=== PATIENT | male | born 1960 | race African-American/Black ===

== ENCOUNTER 2021-10-24 12:07 | Outpatient (CLI) | payer MEDICARE, MEDICAID ==
[2021-10-24 13:40] LABS: #Eosinphils 0.1 10x3/uL (0.0-0.5); #Monocytes 0.6 10x3/uL (0.0-1.1); #Neutrophils 2.1 10x3/uL (1.5-8.4); %Basophils 0.7 % (0.0-2.0); %Eosinophils 2.9 % (0.0-6.0); %Lymphocytes 35.8 % (18.0-47.0); %Monocytes 13.6 % (0.0-10.0); %Neutrophils 46.6 % (40.0-75.0); Hemoglobin 12.2 g/dL (13.5-17.5); Mean Corpuscular HGB CONC 32.2 g/dL (32.0-36.0); Mean Corpuscular Hemoglobin 32.4 pg (27.0-33.0); Mean Corpuscular Volume 100.5 fl (81.2-95.1); Mean Platelet Volume 11.2 fl (7.4-10.4); Platelet Count 114 10x3/uL (150-450); RBC Distribution Width 12.5 % (11.5-14.5); Red Blood Cell (RBC) Count 3.77 10x6/uL (4.32-5.72); White Blood Cell (WBC) Count 4.5 10x3/uL (3.5-10.5)
[2021-10-24 13:44] LABS: Prothrombin Time 11.3 sec (9.5-12.1)
[2021-10-24 13:53] LABS: Anion Gap 16 mmol/L (10-20); BUN (Urea Nitrogen) 12 mg/dL (8.4-25.7); Calc. Creatinine Clearance 0 mL/min (70-130); Calcium 8.8 mg/dL (7.8-10.44); Carbon Dioxide 21 mmol/L (23-31); Chloride 110 mmol/L (98-107); Glucose 121 mg/dL (80-115); Potassium 4.1 mmol/L (3.5-5.1); Sodium 143 mmol/L (136-145)
[2021-10-24 22:56] LABS: SARS-CoV-2 PCR by NAA Not Detected (NotDetected)
== END 2021-10-24 12:08 | disposition home or self-care (01) ==
LOC: LABBT 12:07
PROVIDERS: ATTEND Orthopaedic Surgery
DX: Z01.818 Encounter for other preprocedural examination (principal); M17.12 Unilateral primary osteoarthritis, left knee; Z20.822 Contact with and (suspected) exposure to COVID-19
CPT/HCPCS: 80048; 85025; 85610; 87081; 93005; U0003; U0005; 93010

== ENCOUNTER 2021-10-29 05:32 | Inpatient (IN) | payer MEDICARE, MEDICAID ==
[2021-10-24 14:46] VITALS: BMI 34.0
[2021-10-29] MEDS ORDERED: Sodium Chloride 0.9% 100 ML ONE (06:04)
[2021-10-29] MEDS ORDERED: Tranexamic Acid 1,000 MG/10 ML VIAL ONE (06:04)
[2021-10-29] MEDS ORDERED: fentaNYL Citrate/PF 100 MCG/2 ML SYRINGE ONE (06:05)
[2021-10-29] MEDS ORDERED: HYDROmorphone 0.5 MG/0.5 ML SYRINGE ONE ×2 (06:06→10:31)
[2021-10-29] MEDS ORDERED: Vancomycin 1.5 GRAM/300 ML BAG 1.5 GM in Premix Bag 1 BAG IVPB SCH (06:15)
[2021-10-29] MEDS ORDERED: Fentanyl 100 MCG/2 ML VIAL ONE ×3 (06:44→10:21)
[2021-10-29] MEDS ORDERED: Midazolam HCl 2 mg/2 ml Vial ONE (06:44)
[2021-10-29] MEDS ORDERED: Ropivacaine 0.5% HCl/PF (150 MG/30 ML VIAL) ONE (06:44)
[2021-10-29] MEDS ORDERED: Lidocaine 1% (PF) 30 ML VIAL ONE (06:45)
[2021-10-29] MEDS ORDERED: Bupivacaine PF 0.5% 30 ML VIAL ONE (06:47)
[2021-10-29] MEDS ORDERED: EPINEPHrine 1 MG/ML AMP ONE (06:47)
[2021-10-29] MEDS ORDERED: ceFAZolin (BATCH) 2 GM/100 ML BAG ONE (07:03)
[2021-10-29] MEDS ORDERED: PROPOFOL 200 MG/20 ML VIAL ONE (07:18)
[2021-10-29] MEDS ORDERED: Dexamethasone 20 MG/5 ML VIAL ONE (07:18)
[2021-10-29] MEDS ORDERED: Ondansetron PF 4 MG/2 ML Vial ONE (07:18)
[2021-10-29] MEDS ORDERED: Promethazine HCl 25 MG/ML VIAL IVPB PRN (07:48)
[2021-10-29] MEDS ORDERED: Ondansetron HCl/PF 4 MG/2 ML Vial IVP PRN (07:48)
[2021-10-29] MEDS ORDERED: Promethazine HCl 25 MG/ML VIAL IM PRN ×3 (07:48→11:55)
[2021-10-29] MEDS ORDERED: Fentanyl 100 MCG/2 ML VIAL SLOW IVP PRN (08:29)
[2021-10-29] MEDS ORDERED: Ondansetron PF 4 MG/2 ML Vial IVP PRN ×2 (08:30→11:55)
[2021-10-29] MEDS ORDERED: Zolpidem Tartrate 5 MG TAB PO PRN ×2 (08:30→11:55)
[2021-10-29] MEDS ORDERED: traMADol HCl 50 MG TAB PO PRN (08:30)
[2021-10-29] MEDS ORDERED: Ropivacaine 0.2% 550 ML 550 ML NERVE BLCK SCH (08:30)
[2021-10-29] MEDS ORDERED: Acetaminophen 325 MG TAB PO PRN (11:55)
[2021-10-29] MEDS ORDERED: diphenhydrAMINE 25 MG CAP PO PRN (11:55)
[2021-10-29] MEDS: Ketorolac Tromethamine 30 MG/ML VIAL IVP SCH ×3 (12:17→23:48)
[2021-10-29] MEDS: HYDROcodone/Acetaminophen 10/325 mg Tablet PO PRN ×3 (12:18→20:44)
[2021-10-29] MEDS ORDERED: Dextrose 5% in Water 1,000 ML IV PRN (12:35)
[2021-10-29] MEDS ORDERED: Dextrose 50% Abboject 50 ML SYRINGE SLOW IVP PRN (12:35)
[2021-10-29] MEDS ORDERED: Insulin Regular 300 UNITS/3 ML VIAL SC PRN ×2 (12:35)
[2021-10-29] MEDS ORDERED: Lisinopril 20 MG TAB PO SCH ×2 (12:45→14:42)
[2021-10-29] MEDS: hydrALAZINE 20 MG/ML VIAL SLOW IVP PRN (12:48)
[2021-10-29] MEDS: Sodium Chloride 0.9% 1,000 ML IV SCH ×2 (12:49→22:48)
[2021-10-29] MEDS: ceFAZolin (BATCH) 2 GM in Premix Bag 1 BAG IVPB SCH ×2 (15:32→23:48)
[2021-10-29] MEDS ORDERED: Vancomycin HCl 1.5 GM in Sodium Chloride 0.9% 250 ML 300 ML IVPB SCH (19:00)
[2021-10-29] MEDS: Aspirin 81 mg Enteric Coated Tablet PO SCH (20:44)
[2021-10-29] MEDS: Ferrous Gluconate 324 MG TAB PO SCH (20:45)
[2021-10-29] MEDS: Senokot S 8.6-50 MG TAB PO SCH (20:45)
[2021-10-29] MEDS ORDERED: diphenhydrAMINE 25 MG CAP PO SCH (22:00)
[2021-10-29] MEDS ORDERED: Loratadine 10 MG TAB PO SCH (22:00)
[2021-10-29] MEDS: traMADol HCl 50 MG TAB PO PRN (23:47)
[2021-10-30] MEDS: HYDROcodone/Acetaminophen 10/325 mg Tablet PO PRN ×3 (03:03→13:28)
[2021-10-30 05:30] LABS: Hemoglobin 11.4 g/dL (14.0-18.0); Mean Corpuscular HGB CONC 31.1 g/dL (32.0-36.0); Mean Corpuscular Hemoglobin 33.6 pg (27.0-31.0); Mean Platelet Volume 7.7 fL (7.4-10.4); Platelet Count 95 thou/uL (130-400); RBC Distribution Width 11.6 % (11.5-14.5); White Blood Cell (WBC) Count 9.9 thou/uL (4.8-10.8)
[2021-10-30] MEDS: Sodium Chloride 0.9% 1,000 ML IV SCH ×2 (05:47→16:47)
[2021-10-30] MEDS: Ketorolac Tromethamine 30 MG/ML VIAL IVP SCH ×4 (06:12→23:25)
[2021-10-30] MEDS: Ferrous Gluconate 324 MG TAB PO SCH ×2 (08:23→19:59)
[2021-10-30] MEDS: Multivitamin W/ Minerals 1 TAB PO SCH (08:23)
[2021-10-30] MEDS: Thiamine 100 MG TAB PO SCH (08:23)
[2021-10-30] MEDS: Aspirin 81 mg Enteric Coated Tablet PO SCH ×2 (08:23→19:59)
[2021-10-30] MEDS: Senokot S 8.6-50 MG TAB PO SCH ×2 (08:23→19:58)
[2021-10-30] MEDS: Folic Acid 1 MG TAB PO SCH (08:23)
[2021-10-30] MEDS ORDERED: Lisinopril 20 MG TAB PO SCH (09:00)
[2021-10-30] MEDS ORDERED: Folic Acid/Vit B Comp W-C PO SCH (09:00)
[2021-10-30] MEDS ORDERED: Lisinopril 10 MG TAB PO SCH ×2 (09:00→19:00)
[2021-10-30] MEDS: hydrALAZINE 20 MG/ML VIAL SLOW IVP PRN ×2 (13:20→19:57)
[2021-10-30] MEDS ORDERED: Labetalol HCl 100 MG/20 ML VIAL SLOW IVP PRN (16:25)
[2021-10-30] MEDS: traMADol HCl 50 MG TAB PO PRN (19:58)
[2021-10-30] MEDS: Loratadine 10 MG TAB PO SCH (19:58)
[2021-10-31] MEDS: Sodium Chloride 0.9% 1,000 ML IV SCH ×3 (00:13→23:28)
[2021-10-31] MEDS: Ketorolac Tromethamine 30 MG/ML VIAL IVP SCH (05:10)
[2021-10-31 05:24] LABS: Hemoglobin 11.7 g/dL (14.0-18.0); Mean Corpuscular HGB CONC 31.3 g/dL (32.0-36.0); Mean Corpuscular Hemoglobin 33.9 pg (27.0-31.0); Mean Platelet Volume 8.3 fL (7.4-10.4); Platelet Count 98 thou/uL (130-400); RBC Distribution Width 11.7 % (11.5-14.5); Red Blood Cell (RBC) Count 3.45 mill/uL (4.70-6.10); White Blood Cell (WBC) Count 8.2 thou/uL (4.8-10.8)
[2021-10-31] MEDS: HYDROcodone/Acetaminophen 10/325 mg Tablet PO PRN ×3 (08:54→20:53)
[2021-10-31] MEDS: Multivitamin W/ Minerals 1 TAB PO SCH (08:56)
[2021-10-31] MEDS: Ferrous Gluconate 324 MG TAB PO SCH ×2 (08:56→20:53)
[2021-10-31] MEDS: Aspirin 81 mg Enteric Coated Tablet PO SCH ×2 (08:57→20:53)
[2021-10-31] MEDS: Lisinopril 20 MG TAB PO SCH (08:57)
[2021-10-31] MEDS: Folic Acid 1 MG TAB PO SCH (08:57)
[2021-10-31] MEDS: Thiamine 100 MG TAB PO SCH (08:58)
[2021-10-31] MEDS: Senokot S 8.6-50 MG TAB PO SCH ×2 (09:10→20:53)
[2021-10-31] MEDS: traMADol HCl 50 MG TAB PO PRN (14:53)
[2021-10-31] MEDS: Loratadine 10 MG TAB PO SCH (20:53)
[2021-11-01] MEDS: Aspirin 81 mg Enteric Coated Tablet PO SCH ×2 (08:44→21:30)
[2021-11-01] MEDS: Multivitamin W/ Minerals 1 TAB PO SCH (08:44)
[2021-11-01] MEDS: Ferrous Gluconate 324 MG TAB PO SCH ×2 (08:45→21:30)
[2021-11-01] MEDS: Senokot S 8.6-50 MG TAB PO SCH ×2 (08:45→21:30)
[2021-11-01] MEDS: Lisinopril 20 MG TAB PO SCH (08:45)
[2021-11-01] MEDS: Amlodipine 10 MG TAB PO SCH (08:45)
[2021-11-01] MEDS: Folic Acid 1 MG TAB PO SCH (08:45)
[2021-11-01] MEDS: Thiamine 100 MG TAB PO SCH (08:45)
[2021-11-01] MEDS: HYDROcodone/Acetaminophen 10/325 mg Tablet PO PRN ×4 (08:50→22:10)
[2021-11-01] MEDS: Sodium Chloride 0.9% 1,000 ML IV SCH ×2 (16:24→21:30)
[2021-11-01] MEDS: Loratadine 10 MG TAB PO SCH (21:30)
[2021-11-02] MEDS: Sodium Chloride 0.9% 1,000 ML IV SCH ×2 (04:55→12:24)
[2021-11-02] MEDS: HYDROcodone/Acetaminophen 10/325 mg Tablet PO PRN ×4 (06:16→20:26)
[2021-11-02 06:34] LABS: Anion Gap 12 mmol/L (10-20); BUN (Urea Nitrogen) 9 mg/dL (8.4-25.7); Calc. Creatinine Clearance 140 mL/min (70-130); Calcium 8.1 mg/dL (7.8-10.44); Carbon Dioxide 27 mmol/L (23-31); Chloride 104 mmol/L (98-107); Glucose 95 mg/dL (80-115); Potassium 3.8 mmol/L (3.5-5.1); Sodium 139 mmol/L (136-145)
[2021-11-02] MEDS: Multivitamin W/ Minerals 1 TAB PO SCH (08:04)
[2021-11-02] MEDS: Aspirin 81 mg Enteric Coated Tablet PO SCH ×2 (08:04→20:26)
[2021-11-02] MEDS: Lisinopril 20 MG TAB PO SCH ×2 (08:05→20:27)
[2021-11-02] MEDS: Ferrous Gluconate 324 MG TAB PO SCH ×2 (08:05→20:26)
[2021-11-02] MEDS: Amlodipine 10 MG TAB PO SCH (08:05)
[2021-11-02] MEDS: Thiamine 100 MG TAB PO SCH (08:05)
[2021-11-02] MEDS: Folic Acid 1 MG TAB PO SCH (08:05)
[2021-11-02] MEDS: Senokot S 8.6-50 MG TAB PO SCH ×2 (08:05→20:26)
[2021-11-02] MEDS: Loratadine 10 MG TAB PO SCH (20:26)
[2021-11-03] MEDS: Sodium Chloride 0.9% 1,000 ML IV SCH ×2 (01:51→14:58)
[2021-11-03] MEDS: Aspirin 81 mg Enteric Coated Tablet PO SCH (07:35)
[2021-11-03] MEDS: Ferrous Gluconate 324 MG TAB PO SCH (07:35)
[2021-11-03] MEDS: Multivitamin W/ Minerals 1 TAB PO SCH (07:35)
[2021-11-03] MEDS: Thiamine 100 MG TAB PO SCH (07:36)
[2021-11-03] MEDS: Senokot S 8.6-50 MG TAB PO SCH (07:36)
[2021-11-03] MEDS: Lisinopril 20 MG TAB PO SCH (07:37)
[2021-11-03] MEDS: HYDROcodone/Acetaminophen 10/325 mg Tablet PO PRN ×2 (07:38→16:53)
[2021-11-03] MEDS: Folic Acid 1 MG TAB PO SCH (07:39)
[2021-11-03] MEDS: Amlodipine 10 MG TAB PO SCH (07:39)
[2021-11-03] MEDS: hydrALAZINE 20 MG/ML VIAL SLOW IVP PRN (07:46)
[2021-11-03] MEDS ORDERED: Hydrochlorothiazide 25 MG TAB PO SCH (09:00)
[2021-11-03 16:04] VITALS: BP 128/65; TEMP 98.4
== END 2021-11-03 20:05 | disposition short-term general hospital (02) | DRG 470 ==
LOC: SDC 05:32 → SURG A 11:47 → SDC 12:27
PROVIDERS: ADMIT Orthopaedic Surgery; ATTEND Orthopaedic Surgery
PROC: 0SRD0J9 Replacement of Left Knee Joint with Synthetic Substitute, Cemented, Open Approach (ICD-10-PCS; principal; 2021-10-30)
DX: M17.12 Unilateral primary osteoarthritis, left knee (principal); Z20.822 Contact with and (suspected) exposure to COVID-19; B18.2 Chronic viral hepatitis C; M25.762 Osteophyte, left knee; M21.162 Varus deformity, not elsewhere classified, left knee; E66.9 Obesity, unspecified; D64.9 Anemia, unspecified; D69.6 Thrombocytopenia, unspecified; K21.9 Gastro-esophageal reflux disease without esophagitis; F12.10 Cannabis abuse, uncomplicated; F17.210 Nicotine dependence, cigarettes, uncomplicated; I12.9 Hypertensive chronic kidney disease with stage 1 through stage 4 chronic kidney disease, or unspecified chronic kidney disease; E11.22 Type 2 diabetes mellitus with diabetic chronic kidney disease; N18.2 Chronic kidney disease, stage 2 (mild); M21.062 Valgus deformity, not elsewhere classified, left knee; Z96.651 Presence of right artificial knee joint; Z90.49 Acquired absence of other specified parts of digestive tract; Z68.34 Body mass index [BMI] 34.0-34.9, adult
CPT/HCPCS: 36415; 36416; 80048; 85027; A4306; C1713; C1776; J0171; J0360; J0690; J1100; J1170; J1885; J2001; J2250; J2405; J2704; J2795; J3010; J3370; J3490; J7050; S0020

== ENCOUNTER 2023-02-13 14:20 | Inpatient (IN) | payer MEDICAID, MEDICARE, OTHER ==
[2023-02-13 14:56] LABS: #Eosinphils 0.1 thou/uL (0.0-0.7); #Neutrophils 15.6 thou/uL (1.40-6.50); %Basophils 0.2 % (0.0-1.0); %Eosinophils 0.3 % (0.0-10.0); %Lymphocytes 4.9 % (21.0-51.0); %Monocytes 5.7 % (0.0-10.0); %Neutrophils 88.3 % (42.0-75.0); Hematocrit 33.7 % (42.0-52.0); Hemoglobin 11.1 g/dL (14.0-18.0); Mean Corpuscular HGB CONC 32.9 g/dL (32.0-36.0); Mean Corpuscular Hemoglobin 33.5 pg (27.0-31.0); Mean Corpuscular Volume 101.8 fl (78.0-98.0); Mean Platelet Volume 9.3 fL (7.4-10.4); Platelet Count 183 10x3/uL (130-400); RBC Distribution Width 13.4 % (11.5-14.5); Red Blood Cell (RBC) Count 3.31 mill/uL (4.70-6.10); White Blood Cell (WBC) Count 17.7 10x3/uL (4.8-10.8)
[2023-02-13 15:14] LABS: ALT (SGPT) 14 U/L (8-55); AST (SGOT) 37 U/L (5-34); Acetaminophen Less than 10 mcg/mL (10.0-30.0); Albumin 2.5 g/dL (3.4-4.8); Alcohol Less than 10.0 mg/dL (Less than 10); Alkaline Phosphatase 85 U/L (40-110); Anion Gap 14 mmol/L (10-20); BUN (Urea Nitrogen) 10 mg/dL (8.4-25.7); Bilirubin, Total 1.9 mg/dL (0.2-1.2); CK (CPK) 92 U/L (30-200); Calc. Creatinine Clearance 0 mL/min (70-130); Calcium 8.2 mg/dL (7.8-10.44); Carbon Dioxide 22 mmol/L (23-31); Chloride 105 mmol/L (98-107); Estimated GFR 66; Globulin 4.3 g/dL (2.4-3.5); Glucose 133 mg/dL (80-115); Potassium 3.7 mmol/L (3.5-5.1); Protein, Total 6.8 g/dL (5.8-8.1); Salicylate Less than 8.0 mg/dL (15.0-30.0); Sodium 137 mmol/L (136-145)
[2023-02-13 15:17] LABS: Troponin I Less than 0.010 ng/mL (< 0.028)
[2023-02-13] MEDS ORDERED: cefTRIAXone (ROCEPHIN) 1 GM VIAL ONE ×2 (16:14→16:27)
[2023-02-13] MEDS ORDERED: Vancomycin 1.5 GRAM/300 ML BAG 1.5 GM in Premix Bag 1 BAG IVPB SCH (19:00)
[2023-02-13 19:17] LABS: Lactic Acid 1.9 mmol/L (0.5-2.2)
[2023-02-13 19:18] LABS: Bacteria/HPF 3+ HPF (None Seen); Bilirubin 1+ (Negative); Blood, Urine 3+ (Negative); CAUTI Indications for Culture < 2yrs of age; Clarity Clear (Clear); Glucose, Urine (Dipstick) Normal (Negative); Ketone, Urine Negative (Negative); Leukocyte 250 Leu/uL (Negative); Mucous/LPF Rare LPF (<2+); Nitrite Negative (Negative); Protein, Urine (Dipstick) 30 mg/dL (Neg-Trace); RBC/HPF Greater than 50 HPF (0-3); Specific Gravity, Urine 1.025 (1.002-1.036); Squamous Epithelial None Seen HPF (0-3); Urobilinogen 12 mg/dL (Less than 2); WBC/HPF 21-50 HPF (0-3); pH, Urine 5.5 (5.0-9.0)
[2023-02-13 19:25] LABS: Urine Culture Reflex Yes Yes
[2023-02-13] MEDS ORDERED: Ondansetron ODT 4 MG TAB PO PRN (21:01)
[2023-02-13] MEDS ORDERED: Senokot S 8.6-50 MG TAB PO PRN (21:01)
[2023-02-13] MEDS ORDERED: Bisacodyl 5 MG TAB PO PRN (21:01)
[2023-02-13] MEDS ORDERED: Ondansetron PF 4 MG/2 ML Vial IVP PRN (21:01)
[2023-02-13] MEDS: Ketorolac Tromethamine 30 MG/ML VIAL IVP SCH (21:17)
[2023-02-13] MEDS: Acetaminophen 500 MG TAB PO PRN (21:18)
[2023-02-13] MEDS ORDERED: Albumin 25% 25 GM/100 ML BOT IVPB SCH (22:45)
[2023-02-14] MEDS: Ketorolac Tromethamine 30 MG/ML VIAL IVP PRN ×2 (06:02→12:08)
[2023-02-14 08:35] LABS: Hematocrit 30.5 % (42.0-52.0); Hemoglobin 9.6 g/dL (14.0-18.0); Mean Corpuscular HGB CONC 31.5 g/dL (32.0-36.0); Mean Corpuscular Hemoglobin 33.3 pg (27.0-31.0); Mean Platelet Volume 9.2 fL (7.4-10.4); Platelet Count 149 10x3/uL (130-400); RBC Distribution Width 13.7 % (11.5-14.5); Red Blood Cell (RBC) Count 2.88 mill/uL (4.70-6.10); White Blood Cell (WBC) Count 20.1 10x3/uL (4.8-10.8)
[2023-02-14 08:48] LABS: Delete Auto Diff?? YES; Manual Diff?? YES; Mean Corpuscular Volume 105.9 fl (78.0-98.0)
[2023-02-14 08:49] LABS: Anion Gap 16 mmol/L (10-20); BUN (Urea Nitrogen) 14 mg/dL (8.4-25.7); Calc. Creatinine Clearance 85 mL/min (70-130); Calcium 8.3 mg/dL (7.8-10.44); Carbon Dioxide 20 mmol/L (23-31); Chloride 106 mmol/L (98-107); Estimated GFR 64; Glucose 119 mg/dL (80-115); Potassium 3.8 mmol/L (3.5-5.1); Sodium 138 mmol/L (136-145)
[2023-02-14] MEDS ORDERED: Vancomycin 1 GM in Premix Bag 1 BAG IVPB SCH (09:00)
[2023-02-14] MEDS: Lisinopril 20 MG TAB PO SCH (09:37)
[2023-02-14] MEDS: Famotidine 20 MG TAB PO SCH ×2 (09:37→21:39)
[2023-02-14] MEDS: Aspirin Chewable 81 MG TAB PO SCH (09:37)
[2023-02-14] MEDS: VANCOMYCIN 1.25 GM/250 ML BAG 1.25 GM in Premix Bag 1 BAG IVPB SCH ×2 (09:38→21:38)
[2023-02-14 09:45] LABS: Anisocytosis SLIGHT = 6-15 cells HPF (0-5); Band 1 % (5-11); Burr Cells SLIGHT = 2-5 cells HPF (0-1); CellaVision Operator ID LAB.NR; Eosinophils 1 % (0-10); Lymphocytes 6 % (21-51); Macrocytosis SLIGHT = 6-15 cells HPF (0-5); Monocytes 3 % (0-10); Neutrophil 89 % (42-75); Platelet Adequacy Comment Platelets Normal; Polychromasia SLIGHT = 2-3 cells HPF (0-2); Total Cell Count 100
[2023-02-14] MEDS ORDERED: cefTRIAXone\\ROCEPHIN 1 GM in Sodium Chloride 0.9% 100 ML IVPB SCH (16:00)
[2023-02-14] MEDS ORDERED: hydrOXYzine 25 MG TAB PO SCH (20:45)
[2023-02-14] MEDS ORDERED: Lorazepam 1 MG TAB PO SCH (20:45)
[2023-02-14] MEDS: Ketorolac Tromethamine 30 MG/ML VIAL IVP SCH (21:40)
[2023-02-14] MEDS: Heparin 5,000 UNITS/ML VIAL SC SCH (21:40)
[2023-02-14] MEDS: Atorvastatin Calcium 40 MG TAB PO SCH (21:41)
[2023-02-15] MEDS: Acetaminophen 500 MG TAB PO PRN ×2 (03:17→14:39)
[2023-02-15] MEDS: Heparin 5,000 UNITS/ML VIAL SC SCH ×2 (08:49→20:43)
[2023-02-15] MEDS: Famotidine 20 MG TAB PO SCH ×2 (08:49→20:43)
[2023-02-15] MEDS: Lisinopril 20 MG TAB PO SCH (08:49)
[2023-02-15] MEDS: Aspirin Chewable 81 MG TAB PO SCH (08:49)
[2023-02-15 10:14] LABS: #Basophils 0.1 thou/uL (0.0-0.2); #Eosinphils 0.2 thou/uL (0.0-0.7); #Monocytes 1.1 thou/uL (0.11-0.59); #Neutrophils 9.4 thou/uL (1.40-6.50); %Basophils 0.5 % (0.0-1.0); %Eosinophils 1.2 % (0.0-10.0); %Lymphocytes 15.1 % (21.0-51.0); %Monocytes 8.4 % (0.0-10.0); %Neutrophils 73.3 % (42.0-75.0); Hematocrit 32.8 % (42.0-52.0); Hemoglobin 10.3 g/dL (14.0-18.0); Mean Corpuscular HGB CONC 31.4 g/dL (32.0-36.0); Mean Corpuscular Hemoglobin 32.9 pg (27.0-31.0); Mean Corpuscular Volume 104.8 fl (78.0-98.0); Mean Platelet Volume 9.3 fL (7.4-10.4); Platelet Count 153 10x3/uL (130-400); RBC Distribution Width 13.9 % (11.5-14.5); Red Blood Cell (RBC) Count 3.13 mill/uL (4.70-6.10); White Blood Cell (WBC) Count 12.8 10x3/uL (4.8-10.8)
[2023-02-15 10:37] LABS: Vancomycin, Trough 14.1 ug/mL
[2023-02-15 10:39] LABS: Anion Gap 11 mmol/L (10-20); BUN (Urea Nitrogen) 15 mg/dL (8.4-25.7); Calc. Creatinine Clearance 92 mL/min (70-130); Calcium 8.6 mg/dL (7.8-10.44); Carbon Dioxide 20 mmol/L (23-31); Chloride 107 mmol/L (98-107); Estimated GFR 70; Glucose 129 mg/dL (80-115); Potassium 3.7 mmol/L (3.5-5.1); Sodium 134 mmol/L (136-145)
[2023-02-15 11:00] LABS: HIV (1/2) Antibody/Antigen Non-Reactive (NonReactive); HIV 1/2 INDEX 0.17 S/CO (<1.00)
[2023-02-15] MEDS: VANCOMYCIN 1.25 GM/250 ML BAG 1.25 GM in Premix Bag 1 BAG IVPB SCH (11:08)
[2023-02-15 11:29] LABS: Hep C IgG Ab Reflex HepC Qnt S/CO (NonReactive); Hep C Index 12.05 S/CO (0-0.79)
[2023-02-15] MEDS: CEFAZOLIN 2 GM in Sodium Chloride 0.9% 100 ML IVPB SCH ×2 (14:26→22:27)
[2023-02-15 18:14] LABS: ALT (SGPT) 14 U/L (8-55); AST (SGOT) 43 U/L (5-34); Albumin 2.5 g/dL (3.4-4.8); Alkaline Phosphatase 93 U/L (40-110); Bilirubin, Total 1.2 mg/dL (0.2-1.2)
[2023-02-15] MEDS: Atorvastatin Calcium 40 MG TAB PO SCH (20:43)
[2023-02-15] MEDS: Ketorolac Tromethamine 30 MG/ML VIAL IVP PRN (22:28)
[2023-02-16] MEDS: CEFAZOLIN 2 GM in Sodium Chloride 0.9% 100 ML IVPB SCH ×3 (05:13→22:23)
[2023-02-16] MEDS ORDERED: Bupivacaine PF 0.5% 30 ML VIAL ONE (06:39)
[2023-02-16] MEDS ORDERED: Vancomycin 1 GM VIAL ONE (06:39)
[2023-02-16] MEDS ORDERED: Vancomycin 500 MG VIAL (PEDI) ONE (06:39)
[2023-02-16] MEDS ORDERED: Bacitracin Zinc Ointment 30 gm TUBE ONE (06:39)
[2023-02-16] MEDS: Heparin 5,000 UNITS/ML VIAL SC SCH ×2 (09:49→21:39)
[2023-02-16] MEDS: Famotidine 20 MG TAB PO SCH ×2 (09:49→20:30)
[2023-02-16] MEDS: Aspirin Chewable 81 MG TAB PO SCH (09:49)
[2023-02-16] MEDS: Lisinopril 20 MG TAB PO SCH (09:49)
[2023-02-16] MEDS: Lorazepam 2 MG/ML VIAL SLOW IVP PRN ×2 (10:26→20:30)
[2023-02-16 12:01] LABS: #Basophils 0.1 thou/uL (0.0-0.2); #Eosinphils 0.1 thou/uL (0.0-0.7); #Monocytes 1.1 thou/uL (0.11-0.59); #Neutrophils 7.3 thou/uL (1.40-6.50); %Basophils 0.5 % (0.0-1.0); %Eosinophils 0.8 % (0.0-10.0); %Lymphocytes 18.3 % (21.0-51.0); %Monocytes 10.3 % (0.0-10.0); %Neutrophils 69.5 % (42.0-75.0); Hematocrit 32.2 % (42.0-52.0); Hemoglobin 10.2 g/dL (14.0-18.0); Mean Corpuscular HGB CONC 31.7 g/dL (32.0-36.0); Mean Corpuscular Hemoglobin 32.5 pg (27.0-31.0); Mean Corpuscular Volume 102.5 fl (78.0-98.0); Mean Platelet Volume 9.2 fL (7.4-10.4); Platelet Count 177 10x3/uL (130-400); RBC Distribution Width 14.1 % (11.5-14.5); Red Blood Cell (RBC) Count 3.14 mill/uL (4.70-6.10); White Blood Cell (WBC) Count 10.5 10x3/uL (4.8-10.8)
[2023-02-16 12:28] LABS: Anion Gap 13 mmol/L (10-20); BUN (Urea Nitrogen) 14 mg/dL (8.4-25.7); Calc. Creatinine Clearance 100 mL/min (70-130); Calcium 8.7 mg/dL (7.6-10.4); Carbon Dioxide 23 mmol/L (23-31); Chloride 105 mmol/L (98-107); Estimated GFR 78; Glucose 100 mg/dL (80-115); Sodium 137 mmol/L (136-145)
[2023-02-16 13:45] LABS: Amphetamine Not Detected (NotDetected); Barbiturates Screen Not Detected (NotDetected); Benzodiazepine Screen Not Detected (NotDetected); Cocaine Metabolite Screen Not Detected (NotDetected); Methadone Not Detected (NotDetected); Methamphetamine Not Detected (NotDetected); Opiate Screen Not Detected (NotDetected); Oxycodone Screen Not Detected (NotDetected); Phencyclidine (PCP) Not Detected (NotDetected); THC/Cannabinoid Screen Not Detected (NotDetected); Tricyclic Screen Not Detected (NotDetected)
[2023-02-16] MEDS ORDERED: NIFEdipine XL 30 MG TAB PO SCH (17:15)
[2023-02-16] MEDS: Atorvastatin Calcium 40 MG TAB PO SCH (20:30)
[2023-02-16] MEDS ORDERED: cloNIDine 0.1 MG TAB PO SCH (21:00)
[2023-02-17] MEDS: CEFAZOLIN 2 GM in Sodium Chloride 0.9% 100 ML IVPB SCH ×3 (05:31→21:35)
[2023-02-17] MEDS: Aspirin Chewable 81 MG TAB PO SCH (09:15)
[2023-02-17] MEDS: Heparin 5,000 UNITS/ML VIAL SC SCH ×2 (09:15→20:17)
[2023-02-17] MEDS: Famotidine 20 MG TAB PO SCH ×2 (09:18→20:16)
[2023-02-17] MEDS: Lisinopril 20 MG TAB PO SCH (09:18)
[2023-02-17] MEDS: NIFEdipine XL 30 MG TAB PO SCH (09:19)
[2023-02-17 10:05] LABS: #Eosinphils 0.1 thou/uL (0.0-0.7); #Monocytes 1.4 thou/uL (0.11-0.59); #Neutrophils 7.4 thou/uL (1.40-6.50); %Basophils 0.3 % (0.0-1.0); %Eosinophils 0.5 % (0.0-10.0); %Lymphocytes 21.4 % (21.0-51.0); %Monocytes 12.3 % (0.0-10.0); %Neutrophils 65.1 % (42.0-75.0); Hematocrit 30.7 % (42.0-52.0); Hemoglobin 9.6 g/dL (14.0-18.0); Mean Corpuscular HGB CONC 31.3 g/dL (32.0-36.0); Mean Corpuscular Hemoglobin 32.8 pg (27.0-31.0); Mean Corpuscular Volume 104.8 fl (78.0-98.0); Mean Platelet Volume 9.6 fL (7.4-10.4); Platelet Count 225 10x3/uL (130-400); RBC Distribution Width 14.4 % (11.5-14.5); Red Blood Cell (RBC) Count 2.93 mill/uL (4.70-6.10); White Blood Cell (WBC) Count 11.4 10x3/uL (4.8-10.8)
[2023-02-17 10:23] LABS: Anion Gap 14 mmol/L (10-20); BUN (Urea Nitrogen) 13 mg/dL (8.4-25.7); Calc. Creatinine Clearance 96 mL/min (70-130); Calcium 8.8 mg/dL (7.8-10.44); Carbon Dioxide 20 mmol/L (23-31); Chloride 106 mmol/L (98-107); Estimated GFR 73; Glucose 150 mg/dL (80-115); Potassium 4.3 mmol/L (3.5-5.1); Sodium 136 mmol/L (136-145)
[2023-02-17] MEDS ORDERED: fentaNYL 50 mcg/mL 1 mL Vial ONE ×2 (15:28→15:57)
[2023-02-17] MEDS ORDERED: Bupivacaine PF 0.5% 30 ML VIAL ONE (15:30)
[2023-02-17] MEDS ORDERED: Bacitracin Zinc Ointment 30 gm TUBE ONE (15:30)
[2023-02-17] MEDS ORDERED: Vancomycin 1 GM VIAL ONE (15:52)
[2023-02-17] MEDS ORDERED: Ketamine 50 MG/ML (10ML VIAL) ONE (15:57)
[2023-02-17] MEDS ORDERED: Midazolam HCl 2 mg/2 ml Vial ONE (15:57)
[2023-02-17] MEDS ORDERED: Morphine Sulfate 2 MG/ML SYRINGE SLOW IVP PRN (17:53)
[2023-02-17] MEDS ORDERED: Ondansetron HCl/PF 4 MG/2 ML Vial IVP PRN (17:53)
[2023-02-17] MEDS: Atorvastatin Calcium 40 MG TAB PO SCH (20:16)
[2023-02-17] MEDS: cloNIDine 0.1 MG TAB PO SCH (20:17)
[2023-02-17] MEDS: Morphine 2 MG/ML VIAL SLOW IVP PRN (22:37)
[2023-02-18 03:57] LABS: #Eosinphils 0.2 thou/uL (0.0-0.7); #Monocytes 1.3 thou/uL (0.11-0.59); #Neutrophils 5.7 thou/uL (1.40-6.50); %Basophils 0.4 % (0.0-1.0); %Eosinophils 1.7 % (0.0-10.0); %Lymphocytes 22.5 % (21.0-51.0); %Monocytes 13.7 % (0.0-10.0); %Neutrophils 61.2 % (42.0-75.0); Hematocrit 29.2 % (42.0-52.0); Hemoglobin 9.3 g/dL (14.0-18.0); Mean Corpuscular HGB CONC 31.8 g/dL (32.0-36.0); Mean Corpuscular Hemoglobin 32.4 pg (27.0-31.0); Mean Corpuscular Volume 101.7 fl (78.0-98.0); Mean Platelet Volume 9.6 fL (7.4-10.4); Platelet Count 195 10x3/uL (130-400); Red Blood Cell (RBC) Count 2.87 mill/uL (4.70-6.10); White Blood Cell (WBC) Count 9.4 10x3/uL (4.8-10.8)
[2023-02-18 04:39] LABS: Anion Gap 13 mmol/L (10-20); BUN (Urea Nitrogen) 14 mg/dL (8.4-25.7); Calc. Creatinine Clearance 119 mL/min (70-130); Calcium 8.6 mg/dL (7.8-10.44); Carbon Dioxide 25 mmol/L (23-31); Chloride 105 mmol/L (98-107); Estimated GFR 95; Glucose 113 mg/dL (80-115); Potassium 4.1 mmol/L (3.5-5.1); Sodium 139 mmol/L (136-145)
[2023-02-18] MEDS: CEFAZOLIN 2 GM in Sodium Chloride 0.9% 100 ML IVPB SCH ×3 (04:59→21:57)
[2023-02-18] MEDS: NIFEdipine XL 30 MG TAB PO SCH (09:51)
[2023-02-18] MEDS: Aspirin Chewable 81 MG TAB PO SCH (09:52)
[2023-02-18] MEDS: Lisinopril 20 MG TAB PO SCH (09:52)
[2023-02-18] MEDS: Furosemide 20 MG/2 ML VIAL SLOW IVP SCH (09:57)
[2023-02-18] MEDS: Heparin 5,000 UNITS/ML VIAL SC SCH ×2 (09:58→20:07)
[2023-02-18] MEDS: cloNIDine 0.1 MG TAB PO SCH ×2 (10:19→20:06)
[2023-02-18] MEDS: Famotidine 20 MG TAB PO SCH ×2 (10:51→20:07)
[2023-02-18] MEDS ORDERED: Iopamidol-370 76% 500 ML MDV (1 ML CHARGE) ONE (12:54)
[2023-02-18 15:46] LABS: Amphetamine Not Detected (NotDetected); Barbiturates Screen Not Detected (NotDetected); Benzodiazepine Screen Not Detected (NotDetected); Cocaine Metabolite Screen Not Detected (NotDetected); Methadone Not Detected (NotDetected); Methamphetamine Not Detected (NotDetected); Opiate Screen Detected (NotDetected); Oxycodone Screen Not Detected (NotDetected); Phencyclidine (PCP) Not Detected (NotDetected); THC/Cannabinoid Screen Not Detected (NotDetected); Tricyclic Screen Not Detected (NotDetected)
[2023-02-18] MEDS: Morphine 2 MG/ML VIAL SLOW IVP PRN ×2 (18:35→21:59)
[2023-02-18] MEDS: Atorvastatin Calcium 40 MG TAB PO SCH (20:07)
[2023-02-19 05:21] LABS: #Eosinphils 0.2 thou/uL (0.0-0.7); #Monocytes 1.3 thou/uL (0.11-0.59); #Neutrophils 5.9 thou/uL (1.40-6.50); %Basophils 0.2 % (0.0-1.0); %Eosinophils 2.1 % (0.0-10.0); %Lymphocytes 22.6 % (21.0-51.0); %Monocytes 13.3 % (0.0-10.0); Hemoglobin 9.8 g/dL (14.0-18.0); Mean Corpuscular HGB CONC 31.6 g/dL (32.0-36.0); Mean Corpuscular Hemoglobin 32.3 pg (27.0-31.0); Mean Corpuscular Volume 102.3 fl (78.0-98.0); Mean Platelet Volume 9.4 fL (7.4-10.4); Platelet Count 217 10x3/uL (130-400); RBC Distribution Width 14.2 % (11.5-14.5); Red Blood Cell (RBC) Count 3.03 mill/uL (4.70-6.10); White Blood Cell (WBC) Count 9.7 10x3/uL (4.8-10.8)
[2023-02-19] MEDS: CEFAZOLIN 2 GM in Sodium Chloride 0.9% 100 ML IVPB SCH ×3 (05:37→21:19)
[2023-02-19 05:43] LABS: Anion Gap 12 mmol/L (10-20); BUN (Urea Nitrogen) 22 mg/dL (8.4-25.7); Calc. Creatinine Clearance 102 mL/min (70-130); Carbon Dioxide 27 mmol/L (23-31); Chloride 105 mmol/L (98-107); Estimated GFR 77; Glucose 115 mg/dL (80-115); Potassium 4.3 mmol/L (3.5-5.1); Sodium 140 mmol/L (136-145)
[2023-02-19] MEDS: Aspirin Chewable 81 MG TAB PO SCH (08:34)
[2023-02-19] MEDS: NIFEdipine XL 30 MG TAB PO SCH (08:35)
[2023-02-19] MEDS: Famotidine 20 MG TAB PO SCH ×2 (08:35→21:13)
[2023-02-19] MEDS: Heparin 5,000 UNITS/ML VIAL SC SCH ×2 (08:36→21:14)
[2023-02-19] MEDS: Furosemide 20 MG/2 ML VIAL SLOW IVP SCH (08:36)
[2023-02-19] MEDS: Lisinopril 20 MG TAB PO SCH (08:36)
[2023-02-19] MEDS: cloNIDine 0.1 MG TAB PO SCH ×2 (08:50→21:13)
[2023-02-19] MEDS ORDERED: Iopamidol-370 76% 500 ML MDV (1 ML CHARGE) ONE (15:00)
[2023-02-19] MEDS: Morphine 2 MG/ML VIAL SLOW IVP PRN ×2 (15:33→21:14)
[2023-02-19] MEDS: Atorvastatin Calcium 40 MG TAB PO SCH (21:13)
[2023-02-19] MEDS ORDERED: Atropine Sulfate 1 mg/10 ml Syringe ONE (23:32)
[2023-02-19] MEDS ORDERED: NOREPINEPHRINE 8 MG/250 ML-D5W 250 ML ONE (23:54)
[2023-02-19] MEDS ORDERED: Sodium Chloride 0.9% 500 ML IV SCH (23:59)
[2023-02-19] MEDS ORDERED: Atropine Sulfate 1 mg/10 ml Syringe IVP SCH (23:59)
[2023-02-19] MEDS ORDERED: NOREPINEPHRINE 8 MG/250 ML-D5W 250 ML IVPB SCH (23:59)
[2023-02-20 00:18] LABS: #Eosinphils 0.1 thou/uL (0.0-0.7); #Monocytes 0.7 thou/uL (0.11-0.59); #Neutrophils 4.5 thou/uL (1.40-6.50); %Basophils 0.4 % (0.0-1.0); %Eosinophils 1.7 % (0.0-10.0); %Lymphocytes 22.6 % (21.0-51.0); %Neutrophils 64.6 % (42.0-75.0); Hematocrit 25.4 % (42.0-52.0); Hemoglobin 7.7 g/dL (14.0-18.0); Mean Corpuscular HGB CONC 30.3 g/dL (32.0-36.0); Mean Corpuscular Hemoglobin 32.5 pg (27.0-31.0); Mean Platelet Volume 9.8 fL (7.4-10.4); Platelet Count 195 10x3/uL (130-400); RBC Distribution Width 14.5 % (11.5-14.5); Red Blood Cell (RBC) Count 2.37 mill/uL (4.70-6.10)
[2023-02-20 00:19] LABS: Mean Corpuscular Volume 107.2 fl (78.0-98.0)
[2023-02-20] MEDS ORDERED: Lorazepam 2 MG/ML VIAL ONE (00:24)
[2023-02-20] MEDS ORDERED: Propofol BOLUS 1,000 MG/100 ML VIAL IV PRN (00:30)
[2023-02-20] MEDS ORDERED: Ventilator Sedation Protocol 1 EACH FS SCH (00:30)
[2023-02-20] MEDS ORDERED: Fentanyl BOLUS 250 ML IVPB PRN (00:30)
[2023-02-20] MEDS ORDERED: DISCONTINUE PREVIOUS NARCOTIC PAIN MEDICATIONS AND BENZODIAZEPINES FS SCH (00:30)
[2023-02-20 00:38] LABS: Lactic Acid 2.2 mmol/L (0.5-2.2)
[2023-02-20 00:40] LABS: ALT (SGPT) Less than 7 U/L (8-55); AST (SGOT) 41 U/L (5-34); Albumin 1.5 g/dL (3.4-4.8); Alkaline Phosphatase 57 U/L (40-110); Anion Gap 11 mmol/L (10-20); BUN (Urea Nitrogen) 21 mg/dL (8.4-25.7); Bilirubin, Total 0.6 mg/dL (0.2-1.2); Calc. Creatinine Clearance 96 mL/min (70-130); Carbon Dioxide 19 mmol/L (23-31); Chloride 114 mmol/L (98-107); Estimated GFR 73; Globulin 3.6 g/dL (2.4-3.5); Glucose 127 mg/dL (80-115); Potassium 3.5 mmol/L (3.5-5.1); Protein, Total 5.1 g/dL (5.8-8.1); Sodium 140 mmol/L (136-145)
[2023-02-20] MEDS: Fentanyl CADD 100 ML IV SCH (01:51)
[2023-02-20] MEDS: Propofol 1,000 MG/100 ML VIAL IV PRN ×4 (02:07→19:30)
[2023-02-20] MEDS ORDERED: Senokot 8.6 MG TAB PO PRN (02:45)
[2023-02-20] MEDS ORDERED: Fleet Saline Enema 133 ML BOT PR SCH (03:00)
[2023-02-20] MEDS: Albumin 25% 25 GM/100 ML BOT IVPB SCH ×4 (03:52→20:43)
[2023-02-20 05:26] LABS: #Eosinphils 0.2 thou/uL (0.0-0.7); #Neutrophils 5.7 thou/uL (1.40-6.50); %Basophils 0.4 % (0.0-1.0); %Eosinophils 1.7 % (0.0-10.0); %Monocytes 10.4 % (0.0-10.0); %Neutrophils 61.1 % (42.0-75.0); Hematocrit 29.7 % (42.0-52.0); Hemoglobin 9.4 g/dL (14.0-18.0); Mean Corpuscular HGB CONC 31.6 g/dL (32.0-36.0); Mean Corpuscular Hemoglobin 32.9 pg (27.0-31.0); Mean Platelet Volume 9.6 fL (7.4-10.4); Platelet Count 229 10x3/uL (130-400); RBC Distribution Width 14.1 % (11.5-14.5); Red Blood Cell (RBC) Count 2.86 mill/uL (4.70-6.10); White Blood Cell (WBC) Count 9.3 10x3/uL (4.8-10.8)
[2023-02-20 05:28] LABS: Anion Gap 14 mmol/L (10-20); BUN (Urea Nitrogen) 27 mg/dL (8.4-25.7); Calc. Creatinine Clearance 74 mL/min (70-130); Calcium 8.8 mg/dL (7.8-10.44); Carbon Dioxide 22 mmol/L (23-31); Chloride 106 mmol/L (98-107); Estimated GFR 54; Glucose 116 mg/dL (80-115); Potassium 4.3 mmol/L (3.5-5.1); Sodium 138 mmol/L (136-145)
[2023-02-20 05:30] LABS: Mean Corpuscular Volume 103.8 fl (78.0-98.0)
[2023-02-20] MEDS: CEFAZOLIN 2 GM in Sodium Chloride 0.9% 100 ML IVPB SCH ×3 (05:32→20:59)
[2023-02-20 08:00] LABS: Actual Bicarbonate (HCO3a) 23.5 mEq/L (22-28); Base Excess (BEa) 2.2 mEq/L (-2.0 to +3.0); CO2 Tension 26.3 mmHg (35.0-45.0); Calcium, Ionized (arterial) 1.16 mmol/L (1.12-1.30); Carboxyhemoglobin (COHb) 0.6 gm% (0.0-3.0); Hematocrit-ABG 31 % (42.0-52.0); Hemoglobin (Hb) 10.6 g/dL (14.0-18.0); Potassium - ABG Lab 3.54 mmol/L (3.70-5.30); pH, Arterial 7.569 (7.35-7.45)
[2023-02-20 08:02] LABS: O2 Tension (PaO2), arterial 59.7 mmHg (> 80.0)
[2023-02-20 08:03] LABS: ALV-art Gradient 192.625 mmHg (0-20); Puncture Site LRA
[2023-02-20] MEDS: cloNIDine 0.1 MG TAB PO SCH ×2 (09:00→20:43)
[2023-02-20] MEDS: NIFEdipine XL 30 MG TAB PO SCH (09:00)
[2023-02-20] MEDS: Lisinopril 20 MG TAB PO SCH (09:00)
[2023-02-20] MEDS: Furosemide 20 MG/2 ML VIAL SLOW IVP SCH (09:00)
[2023-02-20] MEDS: Polyethylene Glycol 3350 17 GM Packet PER TUBE SCH (09:57)
[2023-02-20] MEDS: Aspirin Chewable 81 MG TAB PO SCH (09:57)
[2023-02-20] MEDS: Pantoprazole 40 MG VIAL IVP SCH ×2 (09:57→20:44)
[2023-02-20] MEDS: Heparin 5,000 UNITS/ML VIAL SC SCH ×2 (09:58→20:44)
[2023-02-20] MEDS: Atorvastatin Calcium 40 MG TAB PO SCH (20:43)
[2023-02-20] MEDS ORDERED: Rocuronium Bromide 10 MG/ML (10ML VIAL) ONE (23:40)
[2023-02-21] MEDS: Propofol 1,000 MG/100 ML VIAL IV PRN ×3 (02:44→13:57)
[2023-02-21 04:45] LABS: #Eosinphils 0.1 thou/uL (0.0-0.7); #Monocytes 0.8 thou/uL (0.11-0.59); #Neutrophils 3.1 thou/uL (1.40-6.50); %Basophils 0.3 % (0.0-1.0); %Eosinophils 1.7 % (0.0-10.0); %Lymphocytes 35.8 % (21.0-51.0); %Monocytes 12.5 % (0.0-10.0); %Neutrophils 49.1 % (42.0-75.0); Hematocrit 27.3 % (42.0-52.0); Hemoglobin 8.5 g/dL (14.0-18.0); Mean Corpuscular HGB CONC 31.1 g/dL (32.0-36.0); Mean Corpuscular Hemoglobin 32.1 pg (27.0-31.0); Mean Platelet Volume 10.4 fL (7.4-10.4); Platelet Count 161 10x3/uL (130-400); RBC Distribution Width 14.9 % (11.5-14.5); Red Blood Cell (RBC) Count 2.65 mill/uL (4.70-6.10); White Blood Cell (WBC) Count 6.3 10x3/uL (4.8-10.8)
[2023-02-21 05:02] LABS: Anion Gap 11 mmol/L (10-20); BUN (Urea Nitrogen) 22 mg/dL (8.4-25.7); Calc. Creatinine Clearance 91 mL/min (70-130); Calcium 8.8 mg/dL (7.8-10.44); Carbon Dioxide 26 mmol/L (23-31); Chloride 110 mmol/L (98-107); Estimated GFR 68; Glucose 99 mg/dL (80-115); Magnesium 2.8 mg/dL (1.6-2.6); Potassium 3.5 mmol/L (3.5-5.1); Sodium 143 mmol/L (136-145)
[2023-02-21] MEDS: CEFAZOLIN 2 GM in Sodium Chloride 0.9% 100 ML IVPB SCH ×3 (05:32→21:28)
[2023-02-21] MEDS: Polyethylene Glycol 3350 17 GM Packet PER TUBE SCH (09:05)
[2023-02-21] MEDS: Aspirin Chewable 81 MG TAB PO SCH (09:05)
[2023-02-21] MEDS: Heparin 5,000 UNITS/ML VIAL SC SCH (09:05)
[2023-02-21] MEDS: Furosemide 20 MG/2 ML VIAL SLOW IVP SCH (09:06)
[2023-02-21] MEDS: NIFEdipine XL 30 MG TAB PO SCH (09:06)
[2023-02-21] MEDS: Lisinopril 20 MG TAB PO SCH (09:06)
[2023-02-21] MEDS: cloNIDine 0.1 MG TAB PO SCH ×2 (09:06→21:41)
[2023-02-21] MEDS: Pantoprazole 40 MG VIAL IVP SCH ×2 (09:13→21:27)
[2023-02-21] MEDS ORDERED: Magnevist 469MG/ML 20 ML VIAL ONE (10:18)
[2023-02-21] MEDS: Fentanyl CADD 100 ML IV SCH (10:36)
[2023-02-21] MEDS: methylPREDNISolone Sod Succ 40 MG VIAL IVP SCH ×2 (11:23→18:36)
[2023-02-21] MEDS ORDERED: methylPREDNISolone Sod Succ/PF 125 MG/2 ML VIAL IVP SCH (12:00)
[2023-02-21] MEDS: Lorazepam 2 MG/ML VIAL SLOW IVP PRN (13:57)
[2023-02-21] MEDS ORDERED: Thrombin 5000 UNITS/5 ML VIAL ONE (17:58)
[2023-02-21] MEDS ORDERED: Bupivacaine 0.25% HCL 30 ML VIAL ONE (17:58)
[2023-02-21] MEDS ORDERED: EPINEPHrine 1 MG/ML AMP ONE (17:58)
[2023-02-21] MEDS ORDERED: Midazolam HCl 2 mg/2 ml Vial ONE (18:03)
[2023-02-21] MEDS ORDERED: fentaNYL PF 100 MCG/2 ML SYRINGE ONE (18:03)
[2023-02-21] MEDS ORDERED: Rocuronium Bromide 10 MG/ML (10ML VIAL) ONE (18:33)
[2023-02-21] MEDS ORDERED: Dexamethasone 20 MG/5 ML VIAL ONE (18:33)
[2023-02-21] MEDS ORDERED: PROPOFOL 200 MG/20 ML VIAL ONE (18:33)
[2023-02-21] MEDS: Scopolamine 1.5 mg/72 hour Patch TD SCH (21:26)
[2023-02-21] MEDS: Atorvastatin Calcium 40 MG TAB PO SCH (21:27)
[2023-02-21] MEDS: levETIRAcetam 500 MG/5 ML VIAL SLOW IVP SCH (21:30)
[2023-02-22] MEDS: methylPREDNISolone Sod Succ 40 MG VIAL IVP SCH ×6 (00:26→23:02)
[2023-02-22 04:03] LABS: #Monocytes 0.2 thou/uL (0.11-0.59); #Neutrophils 3.2 thou/uL (1.40-6.50); %Basophils 0.2 % (0.0-1.0); %Lymphocytes 25.1 % (21.0-51.0); %Monocytes 4.6 % (0.0-10.0); %Neutrophils 69.4 % (42.0-75.0); Hematocrit 27.8 % (42.0-52.0); Hemoglobin 8.7 g/dL (14.0-18.0); Mean Corpuscular HGB CONC 31.3 g/dL (32.0-36.0); Mean Corpuscular Hemoglobin 32.2 pg (27.0-31.0); Mean Platelet Volume 9.5 fL (7.4-10.4); Platelet Count 171 10x3/uL (130-400); RBC Distribution Width 14.4 % (11.5-14.5); White Blood Cell (WBC) Count 4.6 10x3/uL (4.8-10.8)
[2023-02-22 05:01] LABS: Anion Gap 10 mmol/L (10-20); BUN (Urea Nitrogen) 27 mg/dL (8.4-25.7); Calc. Creatinine Clearance 82 mL/min (70-130); Calcium 8.4 mg/dL (7.8-10.44); Carbon Dioxide 22 mmol/L (23-31); Chloride 114 mmol/L (98-107); Estimated GFR 61; Glucose 145 mg/dL (80-115); Magnesium 2.3 mg/dL (1.6-2.6); Sodium 142 mmol/L (136-145)
[2023-02-22] MEDS: CEFAZOLIN 2 GM in Sodium Chloride 0.9% 100 ML IVPB SCH ×3 (05:06→21:15)
[2023-02-22 08:49] LABS: Actual Bicarbonate (HCO3a) 25.5 mEq/L (22-28); Base Excess (BEa) 1.3 mEq/L (-2.0 to +3.0); CO2 Tension 38.8 mmHg (35.0-45.0); Calcium, Ionized (arterial) 1.16 mmol/L (1.12-1.30); Carboxyhemoglobin (COHb) 0.3 gm% (0.0-3.0); Hematocrit-ABG 30 % (42.0-52.0); Hemoglobin (Hb) 10.1 g/dL (14.0-18.0); O2 Tension (PaO2), arterial 80.7 mmHg (> 80.0); Potassium - ABG Lab 3.99 mmol/L (3.70-5.30); pH, Arterial 7.436 (7.35-7.45)
[2023-02-22] MEDS: Pantoprazole 40 MG VIAL IVP SCH ×2 (09:34→20:25)
[2023-02-22] MEDS: Lisinopril 20 MG TAB PO SCH (09:34)
[2023-02-22] MEDS: levETIRAcetam 500 MG/5 ML VIAL SLOW IVP SCH ×2 (09:34→20:24)
[2023-02-22] MEDS: Polyethylene Glycol 3350 17 GM Packet PER TUBE SCH (09:35)
[2023-02-22] MEDS: Amlodipine 5 MG TAB PO SCH (09:35)
[2023-02-22] MEDS: Aspirin Chewable 81 MG TAB PO SCH (09:35)
[2023-02-22] MEDS: Senokot S 8.6-50 MG TAB PO SCH ×2 (10:02→20:25)
[2023-02-22 10:26] LABS: Puncture Site RBA
[2023-02-22] MEDS: Furosemide 20 MG/2 ML VIAL SLOW IVP SCH (19:23)
[2023-02-22] MEDS: Atorvastatin Calcium 40 MG TAB PO SCH (20:25)
[2023-02-23 04:02] LABS: #Monocytes 0.4 thou/uL (0.11-0.59); #Neutrophils 6.7 thou/uL (1.40-6.50); %Lymphocytes 12.5 % (21.0-51.0); %Monocytes 4.7 % (0.0-10.0); %Neutrophils 82.2 % (42.0-75.0); Hematocrit 28.6 % (42.0-52.0); Hemoglobin 8.7 g/dL (14.0-18.0); Mean Corpuscular HGB CONC 30.4 g/dL (32.0-36.0); Mean Corpuscular Hemoglobin 32.5 pg (27.0-31.0); Mean Platelet Volume 10.2 fL (7.4-10.4); Platelet Count 180 10x3/uL (130-400); RBC Distribution Width 14.4 % (11.5-14.5); Red Blood Cell (RBC) Count 2.68 mill/uL (4.70-6.10); White Blood Cell (WBC) Count 8.2 10x3/uL (4.8-10.8)
[2023-02-23 04:15] LABS: Mean Corpuscular Volume 106.7 fl (78.0-98.0)
[2023-02-23 04:24] LABS: Anion Gap 12 mmol/L (10-20); BUN (Urea Nitrogen) 39 mg/dL (8.4-25.7); Calc. Creatinine Clearance 72 mL/min (70-130); Calcium 8.2 mg/dL (7.8-10.44); Carbon Dioxide 24 mmol/L (23-31); Chloride 116 mmol/L (98-107); Estimated GFR 53; Glucose 168 mg/dL (80-115); Potassium 3.8 mmol/L (3.5-5.1); Sodium 148 mmol/L (136-145)
[2023-02-23] MEDS: CEFAZOLIN 2 GM in Sodium Chloride 0.9% 100 ML IVPB SCH ×3 (05:23→21:02)
[2023-02-23] MEDS: methylPREDNISolone Sod Succ 40 MG VIAL IVP SCH (05:23)
[2023-02-23 07:12] LABS: Actual Bicarbonate (HCO3a) 24.1 mEq/L (22-28); Base Excess (BEa) -0.7 mEq/L (-2.0 to +3.0); CO2 Tension 40.4 mmHg (35.0-45.0); Calcium, Ionized (arterial) 1.16 mmol/L (1.12-1.30); Carboxyhemoglobin (COHb) 0.5 gm% (0.0-3.0); Hematocrit-ABG 36 % (42.0-52.0); Hemoglobin (Hb) 12.2 g/dL (14.0-18.0); O2 Tension (PaO2), arterial 79.2 mmHg (> 80.0); Potassium - ABG Lab 3.86 mmol/L (3.70-5.30); pH, Arterial 7.394 (7.35-7.45)
[2023-02-23 07:15] LABS: Puncture Site RRA
[2023-02-23] MEDS: Amlodipine 5 MG TAB PO SCH (08:40)
[2023-02-23] MEDS: Pantoprazole 40 MG VIAL IVP SCH ×2 (08:40→20:37)
[2023-02-23] MEDS: Aspirin Chewable 81 MG TAB PO SCH (08:40)
[2023-02-23] MEDS: Lisinopril 20 MG TAB PO SCH (08:41)
[2023-02-23] MEDS: Senokot S 8.6-50 MG TAB PO SCH ×2 (08:41→20:37)
[2023-02-23] MEDS: levETIRAcetam 500 MG/5 ML VIAL SLOW IVP SCH ×2 (08:42→20:37)
[2023-02-23] MEDS: Polyethylene Glycol 3350 17 GM Packet PER TUBE SCH (08:42)
[2023-02-23] MEDS ORDERED: Bisacodyl 10 MG SUPP PR SCH (08:45)
[2023-02-23] MEDS: Saccharomyces boulardii 250 MG CAP PO SCH (09:21)
[2023-02-23] MEDS: Atorvastatin Calcium 40 MG TAB PO SCH (20:37)
[2023-02-23] MEDS: Morphine 2 MG/ML VIAL SLOW IVP PRN (23:57)
[2023-02-24 03:45] LABS: #Monocytes 0.9 thou/uL (0.11-0.59); #Neutrophils 7.1 thou/uL (1.40-6.50); %Lymphocytes 14.6 % (21.0-51.0); %Monocytes 9.7 % (0.0-10.0); %Neutrophils 75.3 % (42.0-75.0); Hematocrit 28.4 % (42.0-52.0); Hemoglobin 8.8 g/dL (14.0-18.0); Mean Corpuscular Volume 106.4 fl (78.0-98.0); Mean Platelet Volume 10.2 fL (7.4-10.4); Platelet Count 185 10x3/uL (130-400); RBC Distribution Width 14.4 % (11.5-14.5); Red Blood Cell (RBC) Count 2.67 mill/uL (4.70-6.10); White Blood Cell (WBC) Count 9.4 10x3/uL (4.8-10.8)
[2023-02-24 04:08] LABS: Anion Gap 10 mmol/L (10-20); BUN (Urea Nitrogen) 42 mg/dL (8.4-25.7); Calc. Creatinine Clearance 81 mL/min (70-130); Calcium 8.3 mg/dL (7.8-10.44); Carbon Dioxide 25 mmol/L (23-31); Chloride 117 mmol/L (98-107); Estimated GFR 60; Glucose 123 mg/dL (80-115); Potassium 4.4 mmol/L (3.5-5.1); Sodium 148 mmol/L (136-145)
[2023-02-24] MEDS: CEFAZOLIN 2 GM in Sodium Chloride 0.9% 100 ML IVPB SCH ×3 (05:21→21:08)
[2023-02-24 07:42] LABS: Actual Bicarbonate (HCO3a) 25.8 mEq/L (22-28); Base Excess (BEa) 1.2 mEq/L (-2.0 to +3.0); CO2 Tension 40.8 mmHg (35.0-45.0); Calcium, Ionized (arterial) 1.19 mmol/L (1.12-1.30); Hematocrit-ABG 29 % (42.0-52.0); Hemoglobin (Hb) 9.7 g/dL (14.0-18.0); O2 Tension (PaO2), arterial 83.9 mmHg (> 80.0); Potassium - ABG Lab 4.02 mmol/L (3.70-5.30); pH, Arterial 7.418 (7.35-7.45)
[2023-02-24 07:43] LABS: Puncture Site RRA
[2023-02-24] MEDS: levETIRAcetam 500 MG/5 ML VIAL SLOW IVP SCH ×2 (07:53→20:42)
[2023-02-24] MEDS: Dextrose 5% in Water 1,000 ML IV SCH ×2 (08:45→18:02)
[2023-02-24] MEDS: Pantoprazole 40 MG VIAL IVP SCH (09:14)
[2023-02-24] MEDS: Lansoprazole 15 MG/5 ML (BATCHED)UDCUP PER TUBE SCH (09:20)
[2023-02-24] MEDS: Saccharomyces boulardii 250 MG CAP PO SCH (09:26)
[2023-02-24] MEDS: Polyethylene Glycol 3350 17 GM Packet PER TUBE SCH (09:26)
[2023-02-24] MEDS: Lisinopril 20 MG TAB PO SCH (09:26)
[2023-02-24] MEDS: Senokot S 8.6-50 MG TAB PO SCH ×2 (09:26→20:41)
[2023-02-24] MEDS: Aspirin Chewable 81 MG TAB PO SCH (09:26)
[2023-02-24] MEDS: Amlodipine 5 MG TAB PO SCH (09:27)
[2023-02-24] MEDS ORDERED: Bacitracin Zinc Ointment 30 gm TUBE ONE (16:42)
[2023-02-24] MEDS ORDERED: Bupivacaine PF 0.5% 30 ML VIAL ONE (16:42)
[2023-02-24] MEDS ORDERED: fentaNYL 50 mcg/mL 1 mL Vial ONE (16:49)
[2023-02-24] MEDS ORDERED: Dexmedetomidine 200 MCG/2 ML VIAL ONE (16:49)
[2023-02-24] MEDS ORDERED: Ketamine 50 MG/ML (10ML VIAL) ONE (16:49)
[2023-02-24] MEDS ORDERED: Midazolam HCl 2 mg/2 ml Vial ONE (16:49)
[2023-02-24] MEDS ORDERED: Vasopressin 20 UNITS/ML VIAL ONE (16:51)
[2023-02-24] MEDS: Scopolamine 1.5 mg/72 hour Patch TD SCH (20:37)
[2023-02-24] MEDS: Atorvastatin Calcium 40 MG TAB PO SCH (20:41)
[2023-02-25 04:19] LABS: #Eosinphils 0.1 thou/uL (0.0-0.7); #Neutrophils 5.2 thou/uL (1.40-6.50); %Basophils 0.1 % (0.0-1.0); %Eosinophils 0.6 % (0.0-10.0); %Lymphocytes 23.3 % (21.0-51.0); %Monocytes 12.1 % (0.0-10.0); %Neutrophils 63.5 % (42.0-75.0); Hematocrit 29.3 % (42.0-52.0); Hemoglobin 8.9 g/dL (14.0-18.0); Mean Corpuscular HGB CONC 30.4 g/dL (32.0-36.0); Mean Corpuscular Hemoglobin 32.5 pg (27.0-31.0); Mean Corpuscular Volume 106.9 fl (78.0-98.0); Mean Platelet Volume 10.4 fL (7.4-10.4); Platelet Count 165 10x3/uL (130-400); RBC Distribution Width 14.4 % (11.5-14.5); Red Blood Cell (RBC) Count 2.74 mill/uL (4.70-6.10); White Blood Cell (WBC) Count 8.2 10x3/uL (4.8-10.8)
[2023-02-25 04:41] LABS: Anion Gap 11 mmol/L (10-20); BUN (Urea Nitrogen) 42 mg/dL (8.4-25.7); Calc. Creatinine Clearance 77 mL/min (70-130); Carbon Dioxide 24 mmol/L (23-31); Chloride 115 mmol/L (98-107); Potassium 4.1 mmol/L (3.5-5.1); Sodium 146 mmol/L (136-145)
[2023-02-25 04:42] LABS: Calcium 8.4 mg/dL (7.8-10.44); Estimated GFR 56; Glucose 143 mg/dL (80-115)
[2023-02-25 04:46] LABS: Phosphorus 2.5 mg/dL (2.3-4.7)
[2023-02-25] MEDS: CEFAZOLIN 2 GM in Sodium Chloride 0.9% 100 ML IVPB SCH ×3 (06:05→21:06)
[2023-02-25] MEDS: Dextrose 5% in Water 1,000 ML IV SCH ×2 (06:05→14:04)
[2023-02-25 07:38] LABS: Actual Bicarbonate (HCO3a) 27.3 mEq/L (22-28); Base Excess (BEa) 3.1 mEq/L (-2.0 to +3.0); CO2 Tension 40.2 mmHg (35.0-45.0); Calcium, Ionized (arterial) 1.19 mmol/L (1.12-1.30); Carboxyhemoglobin (COHb) 0.3 gm% (0.0-3.0); Hematocrit-ABG 29 % (42.0-52.0); O2 Tension (PaO2), arterial 80.7 mmHg (> 80.0); Potassium - ABG Lab 3.91 mmol/L (3.70-5.30); Puncture Site RRA
[2023-02-25] MEDS: Lisinopril 20 MG TAB PO SCH (08:42)
[2023-02-25] MEDS: levETIRAcetam 500 MG/5 ML VIAL SLOW IVP SCH ×2 (08:42→20:35)
[2023-02-25] MEDS: Saccharomyces boulardii 250 MG CAP PO SCH (08:42)
[2023-02-25] MEDS: Lansoprazole 15 MG/5 ML (BATCHED)UDCUP PER TUBE SCH (08:42)
[2023-02-25] MEDS: Amlodipine 5 MG TAB PO SCH (08:42)
[2023-02-25] MEDS: Aspirin Chewable 81 MG TAB PO SCH (08:42)
[2023-02-25] MEDS: Polyethylene Glycol 3350 17 GM Packet PER TUBE SCH (08:43)
[2023-02-25] MEDS: Senokot S 8.6-50 MG TAB PO SCH ×2 (08:43→20:36)
[2023-02-25] MEDS ORDERED: Magnevist 469MG/ML 20 ML VIAL ONE ×2 (10:23)
[2023-02-25] MEDS: Morphine 2 MG/ML VIAL SLOW IVP PRN (14:28)
[2023-02-25 14:33] VITALS: BMI 33.0
[2023-02-25] MEDS: Lorazepam 2 MG/ML VIAL SLOW IVP PRN (15:03)
[2023-02-25] MEDS: Atorvastatin Calcium 40 MG TAB PO SCH (20:35)
[2023-02-26] MEDS: Dextrose 5% in Water 1,000 ML IV SCH ×3 (00:36→09:23)
[2023-02-26] MEDS: Acetaminophen 500 MG TAB PO PRN (00:43)
[2023-02-26 04:21] LABS: #Eosinphils 0.1 thou/uL (0.0-0.7); #Neutrophils 5.9 thou/uL (1.40-6.50); %Basophils 0.1 % (0.0-1.0); %Eosinophils 0.9 % (0.0-10.0); %Lymphocytes 21.4 % (21.0-51.0); %Monocytes 10.7 % (0.0-10.0); %Neutrophils 66.7 % (42.0-75.0); Hematocrit 27.2 % (42.0-52.0); Hemoglobin 8.3 g/dL (14.0-18.0); Mean Corpuscular HGB CONC 30.5 g/dL (32.0-36.0); Mean Corpuscular Hemoglobin 32.3 pg (27.0-31.0); Mean Corpuscular Volume 105.8 fl (78.0-98.0); Mean Platelet Volume 10.6 fL (7.4-10.4); Platelet Count 122 10x3/uL (130-400); RBC Distribution Width 14.2 % (11.5-14.5); Red Blood Cell (RBC) Count 2.57 mill/uL (4.70-6.10); White Blood Cell (WBC) Count 8.9 10x3/uL (4.8-10.8)
[2023-02-26 04:37] LABS: INR-International Normal Ratio 1.5; Prothrombin Time 18.7 sec (12.0-14.7)
[2023-02-26 04:41] LABS: Phosphorus 2.3 mg/dL (2.3-4.7)
[2023-02-26 04:42] LABS: Anion Gap 10 mmol/L (10-20); BUN (Urea Nitrogen) 29 mg/dL (8.4-25.7); Calc. Creatinine Clearance 100 mL/min (70-130); Calcium 8.2 mg/dL (7.8-10.44); Carbon Dioxide 26 mmol/L (23-31); Chloride 112 mmol/L (98-107); Estimated GFR 76; Glucose 147 mg/dL (80-115); Potassium 3.9 mmol/L (3.5-5.1); Sodium 144 mmol/L (136-145)
[2023-02-26] MEDS: CEFAZOLIN 2 GM in Sodium Chloride 0.9% 100 ML IVPB SCH ×3 (05:41→22:29)
[2023-02-26] MEDS: Amlodipine 5 MG TAB PO SCH (09:24)
[2023-02-26] MEDS: Lansoprazole 15 MG/5 ML (BATCHED)UDCUP PER TUBE SCH (09:24)
[2023-02-26] MEDS: Aspirin Chewable 81 MG TAB PO SCH (09:24)
[2023-02-26] MEDS: Lisinopril 20 MG TAB PO SCH (09:24)
[2023-02-26] MEDS: levETIRAcetam 500 MG/5 ML VIAL SLOW IVP SCH ×2 (09:24→20:37)
[2023-02-26] MEDS: Senokot S 8.6-50 MG TAB PO SCH ×2 (09:25→20:36)
[2023-02-26] MEDS: Saccharomyces boulardii 250 MG CAP PO SCH (09:25)
[2023-02-26] MEDS: Polyethylene Glycol 3350 17 GM Packet PER TUBE SCH (09:25)
[2023-02-26] MEDS ORDERED: fentaNYL PF 100 MCG/2 ML SYRINGE ONE (13:19)
[2023-02-26] MEDS ORDERED: Midazolam HCl 2 mg/2 ml Vial ONE (13:19)
[2023-02-26] MEDS ORDERED: SUGAMMADEX SODIUM 200 MG/2 ML VIAL ONE (13:19)
[2023-02-26] MEDS ORDERED: Rocuronium Bromide 10 MG/ML (10ML VIAL) ONE (13:37)
[2023-02-26] MEDS ORDERED: ePHEDrine Sulfate 50 MG/10 ML VIAL ONE (13:37)
[2023-02-26] MEDS ORDERED: Bupivacaine PF 0.5% 30 ML VIAL ONE (13:52)
[2023-02-26] MEDS ORDERED: EPINEPHrine 1 MG/ML AMP ONE (13:52)
[2023-02-26] MEDS: Morphine 2 MG/ML VIAL SLOW IVP PRN (15:36)
[2023-02-26] MEDS: Lorazepam 2 MG/ML VIAL SLOW IVP PRN (15:54)
[2023-02-26] MEDS: Atorvastatin Calcium 40 MG TAB PO SCH (20:35)
[2023-02-27 04:26] LABS: #Eosinphils 0.1 thou/uL (0.0-0.7); #Monocytes 0.6 thou/uL (0.11-0.59); #Neutrophils 5.1 thou/uL (1.40-6.50); %Basophils 0.1 % (0.0-1.0); %Eosinophils 1.8 % (0.0-10.0); %Lymphocytes 20.8 % (21.0-51.0); %Monocytes 8.1 % (0.0-10.0); %Neutrophils 68.8 % (42.0-75.0); Hematocrit 28.2 % (42.0-52.0); Hemoglobin 8.7 g/dL (14.0-18.0); Mean Corpuscular HGB CONC 30.9 g/dL (32.0-36.0); Mean Corpuscular Hemoglobin 32.3 pg (27.0-31.0); Mean Corpuscular Volume 104.8 fl (78.0-98.0); Mean Platelet Volume 11.1 fL (7.4-10.4); Platelet Count 105 10x3/uL (130-400); RBC Distribution Width 13.9 % (11.5-14.5); Red Blood Cell (RBC) Count 2.69 mill/uL (4.70-6.10); White Blood Cell (WBC) Count 7.4 10x3/uL (4.8-10.8)
[2023-02-27 04:52] LABS: Phosphorus 2.3 mg/dL (2.3-4.7)
[2023-02-27 04:54] LABS: Anion Gap 9 mmol/L (10-20); BUN (Urea Nitrogen) 24 mg/dL (8.4-25.7); Calc. Creatinine Clearance 129 mL/min (70-130); Calcium 8.4 mg/dL (7.8-10.44); Carbon Dioxide 23 mmol/L (23-31); Chloride 112 mmol/L (98-107); Estimated GFR 98; Glucose 144 mg/dL (80-115); Potassium 3.7 mmol/L (3.5-5.1); Sodium 140 mmol/L (136-145)
[2023-02-27] MEDS: CEFAZOLIN 2 GM in Sodium Chloride 0.9% 100 ML IVPB SCH ×2 (05:25→14:22)
[2023-02-27] MEDS: Dextrose 5% in Water 1,000 ML IV SCH (06:20)
[2023-02-27] MEDS: Amlodipine 5 MG TAB PO SCH (09:08)
[2023-02-27] MEDS: Lisinopril 20 MG TAB PO SCH (09:08)
[2023-02-27] MEDS: levETIRAcetam 500 MG/5 ML VIAL SLOW IVP SCH (09:22)
[2023-02-27] MEDS: Aspirin Chewable 81 MG TAB PO SCH (09:23)
[2023-02-27] MEDS: Senokot S 8.6-50 MG TAB PO SCH (09:23)
[2023-02-27] MEDS: Saccharomyces boulardii 250 MG CAP PO SCH (09:23)
[2023-02-27] MEDS: Polyethylene Glycol 3350 17 GM Packet PER TUBE SCH (09:23)
[2023-02-27] MEDS: Lansoprazole 15 MG/5 ML (BATCHED)UDCUP PER TUBE SCH (10:43)
[2023-02-27 16:53] VITALS: TEMP 99.2
[2023-02-27 18:37] VITALS: BP 128/63
== END 2023-02-27 20:30 | DRG 3 ==
LOC: ERS 14:20 → T4-A 17:37 → OBSVTOIN 02-15 14:56 → IMCU/EMU 02-17 19:07 → CCU 02-19 23:49
PROVIDERS: ADMIT Family Medicine; ATTEND Internal Medicine
PROC: 0J9K0ZZ Drainage of Left Hand Subcutaneous Tissue and Fascia, Open Approach (ICD-10-PCS; 2023-02-15)
PROC: 3E03329 Introduction of Other Anti-infective into Peripheral Vein, Percutaneous Approach (ICD-10-PCS; 2023-02-16)
PROC: 0J9K0ZZ Drainage of Left Hand Subcutaneous Tissue and Fascia, Open Approach (ICD-10-PCS; principal; 2023-02-17)
PROC: 0LB80ZZ Excision of Left Hand Tendon, Open Approach (ICD-10-PCS; 2023-02-17)
PROC: 0R9V0ZZ Drainage of Left Metacarpophalangeal Joint, Open Approach (ICD-10-PCS; 2023-02-17)
PROC: 4A00X4Z Measurement of Central Nervous Electrical Activity, External Approach (ICD-10-PCS; 2023-02-19)
PROC: 3E033XZ Introduction of Vasopressor into Peripheral Vein, Percutaneous Approach (ICD-10-PCS; 2023-02-19)
PROC: 0BH17EZ Insertion of Endotracheal Airway into Trachea, Via Natural or Artificial Opening (ICD-10-PCS; 2023-02-20)
PROC: 4A133R1 Monitoring of Arterial Saturation, Peripheral, Percutaneous Approach (ICD-10-PCS; 2023-02-20)
PROC: 30233J1 Transfusion of Nonautologous Serum Albumin into Peripheral Vein, Percutaneous Approach (ICD-10-PCS; 2023-02-20)
PROC: 5A1955Z Respiratory Ventilation, Greater than 96 Consecutive Hours (ICD-10-PCS; 2023-02-20)
PROC: 00NW0ZZ Release Cervical Spinal Cord, Open Approach (ICD-10-PCS; 2023-02-21)
PROC: 0JDK0ZZ Extraction of Left Hand Subcutaneous Tissue and Fascia, Open Approach (ICD-10-PCS; 2023-02-24)
PROC: 0RBV0ZZ Excision of Left Metacarpophalangeal Joint, Open Approach (ICD-10-PCS; 2023-02-24)
PROC: 0B110Z4 Bypass Trachea to Cutaneous, Open Approach (ICD-10-PCS; 2023-02-26)
PROC: 0DH63UZ Insertion of Feeding Device into Stomach, Percutaneous Approach (ICD-10-PCS; 2023-02-26)
DX: A41.2 Sepsis due to unspecified staphylococcus (principal); G06.1 Intraspinal abscess and granuloma; J96.01 Acute respiratory failure with hypoxia; F15.20 Other stimulant dependence, uncomplicated; L02.512 Cutaneous abscess of left hand; N39.0 Urinary tract infection, site not specified; I69.951 Hemiplegia and hemiparesis following unspecified cerebrovascular disease affecting right dominant side; J81.1 Chronic pulmonary edema; I38 Endocarditis, valve unspecified; N17.9 Acute kidney failure, unspecified; M86.9 Osteomyelitis, unspecified; G82.20 Paraplegia, unspecified; E05.90 Thyrotoxicosis, unspecified without thyrotoxic crisis or storm; F12.90 Cannabis use, unspecified, uncomplicated; F10.90 Alcohol use, unspecified, uncomplicated; R53.81 Other malaise; Z96.653 Presence of artificial knee joint, bilateral; Z90.49 Acquired absence of other specified parts of digestive tract; Z83.3 Family history of diabetes mellitus; I10 Essential (primary) hypertension; Z79.82 Long term (current) use of aspirin; Z79.899 Other long term (current) drug therapy; Z59.00 Homelessness unspecified; B18.2 Chronic viral hepatitis C; F17.210 Nicotine dependence, cigarettes, uncomplicated; E03.9 Hypothyroidism, unspecified; D53.9 Nutritional anemia, unspecified; M65.142 Other infective (teno)synovitis, left hand; R94.6 Abnormal results of thyroid function studies; Z51.5 Encounter for palliative care; Z66 Do not resuscitate; E11.69 Type 2 diabetes mellitus with other specified complication
CPT/HCPCS: 36415; 36416; 36600; 70450; 70496; 70498; 70553; 71045; 71046; 71275; 72125; 72131; 72156; 72157; 72158; 74018; 80048; 80053; 80076; 80202; 80306; 80307; 81001; 82550; 82805; 83605; 83735; 83880; 84100; 84443; 84484; 85025; 85379; 85610; 85730; 86141; 86803; 86850; 86900; 86901; 87040; 87070; 87077; 87086; 87149; 87186; 87205; 87389; 93005; 93010; 93306; 93970; 94002; 94003; 95712; 95816; 95819; 95957; 96361; 96365; 97139; A7521; A9579; C1713; C9113; J0171; J0461; J0696; J1100; J1644; J1885; J1940; J1953; J2060; J2250; J2272; J2704; J2920; J3010; J3370; J3371; J3490; J7030; J7070; P9047; Q9967; S0020